=== PATIENT | male | born 1965 | race Two or more races ===

== ENCOUNTER → 2016-10-19 | Outpatient (CLI) | payer OTHER ==
--- NOTE | 2016-10-19 14:01 | KCIC ---
PROCEDURE One view chest radiograph. HISTORY Positive PPD TECHNIQUE PA chest radiograph was obtained. COMPARISON None. FINDINGS The lungs are clear. There is no consolidation, cavitary lesion, or nodule. There is no pleural effusion. Cardiomediastinal silhouette is within normal limits. Bony structures are intact. IMPRESSION No acute thoracic findings. Electronically signed by: Evan Strauss MD (Oct 19, 2016 13:59:43)
== END | disposition home or self-care (01) ==
LOC: KCIC 10:22
PROVIDERS: ATTEND Family Medicine
DX: R76.11 Nonspecific reaction to tuberculin skin test without active tuberculosis (principal)
CPT/HCPCS: 71010